=== PATIENT | female | born 1990 | race Caucasian/White ===

== ENCOUNTER 2023-10-18 11:53 | Inpatient (IN) ==
[2023-10-18] MEDS ORDERED: Buffered Lidocaine 1% SYRIN 1 ml INTRADERM ONE (13:05)
[2023-10-18] MEDS ORDERED: Lidocaine 1% VIAL 10 MG/ML 30 ML VIAL INJ PRN (13:05)
[2023-10-18] MEDS ORDERED: Promethazine INJ(RESTRICTED) 25 MG/ML 1 ml VIAL IV PRN (13:05)
[2023-10-18] MEDS ORDERED: Penicillin G Potassium IV 5,000,000 UNITS in NS 0.9% 100 ml BAG 100 ML IVPB ONE (13:05)
[2023-10-18] MEDS ORDERED: Lactated Ringers 1000 ml BAG 1,000 ML IV ONE (13:05)
[2023-10-18] MEDS ORDERED: Calcium Carb (TUMS) 500 mg CHEW TAB PO PRN (13:09)
[2023-10-18] MEDS ORDERED: Lidocaine 2% JELLY 6 ML Topical TOPICAL ONE (13:10)
[2023-10-18] MEDS ORDERED: NS 0.9% 1000 ml BAG 1,000 ML IV SCH (13:30)
[2023-10-18] MEDS ORDERED: Penicillin G Potassium IV 3,000,000 UNITS in NS 0.9% 100 ml BAG 100 ML IVPB SCH (14:00)
[2023-10-18] MEDS ORDERED: Lactated Ringers 1000 ml BAG 1,000 ML IV SCH (14:00)
[2023-10-18 14:13] LABS: ABS Eosinophils 0.1 10^3/uL (0.0-0.5); ABS Lymphocytes 2.1 10^3/uL (1.0-4.8); ABS Monocytes 0.6 10^3/uL (0.0-0.9); ABS Neutrophils 9.2 10^3/uL (1.5-7.6); Eosinophil % 0.8 %; Hematocrit 37.2 % (35-45); Hemoglobin 12.7 g/dL (11.5-14.3); Lymphocyte % 17.1 %; Mean Corpuscular Hemoglobin 31.6 pg (27-33); Mean Corpuscular Hgb Conc 34.1 g/dL (31-36); Mean Corpuscular Volume 92.6 fL (80-97); Mean Platelet Volume 7.1 fL (7.5-11.2); Platelet Count 287 10^3/uL (150-450); Red Blood Count 4.02 10^6/uL (3.63-4.92); Red Cell Distribution Width 13.6 % (12-17); White Blood Count 12.1 10^3/uL (3.8-11.8)
[2023-10-18 15:14] LABS: Urine Benzodiazepine Screen None Detected (None Detect); Urine Cannabinoids Screen None Detected (None Detect); Urine Opiates Screen None Detected (None Detect)
[2023-10-18] MEDS: Penicillin G Potassium IV 3,000,000 UNITS in NS 0.9% 100 ml BAG 100 ML IVPB SCH ×2 (18:05→21:49)
[2023-10-18] MEDS ORDERED: Famotidine IV 10 MG/ML 2 ml VIAL (20 mg) IV ONE (23:39)
[2023-10-18] MEDS: Ondansetron 4 mg VIAL 2 MG/ML 2 ml VIAL IV PRN (23:52)
[2023-10-19] MEDS: Penicillin G Potassium IV 3,000,000 UNITS in NS 0.9% 100 ml BAG 100 ML IVPB SCH ×5 (02:12→20:44)
[2023-10-19] MEDS ORDERED: OBEPIDURAL (200 ML) 200 ML EPIDURAL ONE (05:58)
[2023-10-19] MEDS ORDERED: Lidocaine 1.5% EPI 1:200,000 30 ML SDV ONE (05:58)
[2023-10-19] MEDS: Ondansetron 4 mg VIAL 2 MG/ML 2 ml VIAL IV PRN (06:01)
[2023-10-19] MEDS ORDERED: Lactated Ringers 1000 ml BAG 1,000 ML IV ONE (06:52)
[2023-10-19] MEDS ORDERED: Phenylephrine 40 mcg/mL 10mL (400mcg) SYRINGE IV PUSH PRN ×2 (06:52)
[2023-10-19] MEDS ORDERED: Sodium Citrate/Citric Acid LIQ 15 ML UDC PO PRN (06:52)
[2023-10-19] MEDS ORDERED: OBEPIDURAL (200 ML) 200 ML EPIDURAL SCH (07:00)
[2023-10-19 09:23] LABS: Urine Appearance Cloudy; Urine Bilirubin Negative (Negative); Urine Blood 3+ (Negative); Urine Color Yellow; Urine Glucose Negative (Negative); Urine Ketones 2+ (Negative); Urine Nitrite Negative (Negative); Urine Protein 1+(30 mg/dL) (Negative); Urine Specific Gravity 1.016 (1.002-1.030); Urine Urobilinogen Negative (Negative)
[2023-10-19] MEDS ORDERED: Oxytocin in LR 20,000 MILLI.UNIT/1,000 ML BAG IV SCH (09:35)
[2023-10-19 09:46] LABS: Urine Bacteria Absent (Absent); Urine Red Blood Cell 3+(>10/hpf) (Absent); Urine Squamous Epithelial Cell Present (Absent); Urine White Blood Cell 2+(11-20/hpf) (Absent)
[2023-10-19] MEDS: Lactated Ringers 1000 ml BAG 1,000 ML IV SCH (15:20)
[2023-10-19] MEDS ORDERED: CETIRIZINE 10 MG PO SCH (21:00)
[2023-10-20] MEDS: Penicillin G Potassium IV 3,000,000 UNITS in NS 0.9% 100 ml BAG 100 ML IVPB SCH ×3 (01:29→16:05)
[2023-10-20] MEDS: Lactated Ringers 1000 ml BAG 1,000 ML IV SCH ×2 (02:23→06:45)
[2023-10-20] MEDS ORDERED: ceFOXitin 2 GM IVPREMIX 2 GM/50 ML BAG IVPB ONE (06:17)
[2023-10-20] MEDS ORDERED: Morphine PF AMP (0.5MG/ML) 5 MG/10 ML AMP ONE (06:33)
[2023-10-20] MEDS ORDERED: fentaNYL 100 mcg/2 ml 50 MCG/ML VIAL ONE (06:33)
[2023-10-20] MEDS ORDERED: Oxytocin 10 UNITS/ML 1 ML VIAL ONE ×2 (06:37→07:38)
[2023-10-20] MEDS ORDERED: Ondansetron 4 mg VIAL 2 MG/ML 2 ml VIAL ONE (06:37)
[2023-10-20] MEDS ORDERED: Ondansetron 4 mg VIAL 2 MG/ML 2 ml VIAL IV PRN (07:29)
[2023-10-20] MEDS ORDERED: Metoclopramide 5 MG/ML VIAL (10 mg) IV PRN (07:29)
[2023-10-20] MEDS ORDERED: Acetaminophen IV 1 GM/100ML 1,000 MG/100 ML BAG IV PRN (07:29)
[2023-10-20] MEDS ORDERED: Naloxone 0.4 mg VIAL 0.4 mg/ml 1 ml VIAL IV PUSH PRN (07:29)
[2023-10-20] MEDS ORDERED: Acetaminophen IV 1 GM/100ML 1,000 MG/100 ML BAG IV ONE (07:48)
[2023-10-20] MEDS ORDERED: Methylergonovine 0.2 mg AMPULE 1 ml AMP ONE (08:13)
[2023-10-20] MEDS ORDERED: Methylergonovine 0.2 mg AMPULE 1 ml AMP IM ONE (09:12)
[2023-10-20] MEDS ORDERED: Dibucaine 1% OINT 28.35 GM TUBE PR PRN (09:12)
[2023-10-20] MEDS ORDERED: RHO D Immune Globulin (HUMAN) 300 MCG = 1,500 I.U. INJ IM PRN (09:12)
[2023-10-20] MEDS ORDERED: Glycerin ADULT 2.4 gm SUPP PR PRN (09:12)
[2023-10-20] MEDS ORDERED: Witch Hazel PAD JAR TOPICAL PRN (09:12)
[2023-10-20] MEDS ORDERED: Oxytocin in LR 20,000 MILLI.UNIT/1,000 ML BAG IV SCH (09:15)
[2023-10-20] MEDS ORDERED: Lactated Ringers 1000 ml BAG 1,000 ML IV SCH (10:00)
[2023-10-21 08:42] LABS: ABS Eosinophils 0.2 10^3/uL (0.0-0.5); ABS Lymphocytes 1.9 10^3/uL (1.0-4.8); ABS Monocytes 0.9 10^3/uL (0.0-0.9); ABS Neutrophils 13.4 10^3/uL (1.5-7.6); ABS Nucleated RBC 0.01 10^3/ul; Eosinophil % 1.2 %; Hematocrit 32.1 % (35-45); Hemoglobin 10.8 g/dL (11.5-14.3); Lymphocyte % 11.8 %; Mean Corpuscular Hemoglobin 31.5 pg (27-33); Mean Corpuscular Hgb Conc 33.8 g/dL (31-36); Mean Corpuscular Volume 93.2 fL (80-97); Mean Platelet Volume 7.1 fL (7.5-11.2); Platelet Count 232 10^3/uL (150-450); Red Blood Count 3.44 10^6/uL (3.63-4.92); Red Cell Distribution Width 13.4 % (12-17); White Blood Count 16.5 10^3/uL (3.8-11.8)
[2023-10-21] MEDS ORDERED: Ondansetron ODT 4 mg TAB 4 MG TAB SL PRN (20:30)
[2023-10-23 08:04] VITALS: BP 118/72
== END 2023-10-23 14:40 | disposition home or self-care (01) | DRG 540 ==
LOC: MCHOBOUT 11:53 → MCHOB 13:01
PROVIDERS: ADMIT Advanced Practice Midwife; ATTEND Advanced Practice Midwife